=== PATIENT | male | born 1965 | race Caucasian/White ===

== ENCOUNTER 2024-07-07 14:12 | Emergency (ER) | payer MEDICARE, OTHER, SELFPAY ==
[2024-07-07 14:34] VITALS: BP 149/84
[2024-07-07 17:05] VITALS: BMI 21.9
--- NOTE | 2024-07-07 17:47 | ED.GENMED ---
History of Present Illness
General
Chief Complaint: Skin Surface Trauma
Time Seen by Provider: 07/07/24 16:23
History of Present Illness
History of Present Illness:
59-year-old male presents the emergency department for evaluation of a left hand laceration sustained with a chainsaw. He denies any paresthesias to the distal left thumb however cannot extend the thumb, last tetanus is within the past 1 to 2 years
Review of Systems
Review of Systems
Allergies reviewed?: Yes
All Other Systems: ROS reviewed and negative except as documented in HPI and ROS
Phy Exam
Physical Exam
Physical Exam:
GEN: Well appearing, NAD, WDWN
HEENT: Oral mucosa moist, no scleral icterus
Cardiac: Regular rate
Lung: No respiratory distress, no tachypnea
MSK: No gross deformity or injuries
Skin: Good color, no pallor or jaundice, no rashes. 3 cm ragged laceration to the base of the dorsal left thumb, there is a visible extensor tendon laceration at the base of the wound, no foreign bodies, no osseous tissue disruption
Neuro: AO x3, moves all extremities freely
Psych: Calm, cooperative
Course
Orders/Labs/Results
Orders:
Orders
07/07/24 16:19
Hand, Left 3 View [CR Hand - Left Min 3 Views] Urgent
Comment:
Reason For Exam: trauma
07/07/24 17:47
Cephalexin Monohydrate [Keflex] 500 mg PO NOW STA
Vital Signs
Initial and Last Documented VS:
Initial Vital Signs
Pulse Resp BP Pulse Ox
70 16 149/84 99
07/07/24 14:34 07/07/24 14:34 07/07/24 14:34 07/07/24 14:34
Last Documented Vital Signs
Pulse Resp BP Pulse Ox
70 16 149/84 99
07/07/24 14:34 07/07/24 14:34 07/07/24 14:34 07/07/24 17:06
Procedures
Laceration Closure
Left Hand:
Status of Wound: clean
Size of Wound in cm: 3
Description of Wound Edges: ragged
Preparation: cleaned with saline
Anesthesia: 1% Lidocaine with epi
Revision/Debridement: routine- no revision
Wound exploration: explored to base- no FB and with tx- contaminated
Type of Closure: single layer closure
Skin Closure Material: 5-0 nylon
Number of sutures: 4
MDM/Problems Addressed
MDM/Problems Addressed:
I was unable to locate the proximal segment of the extensor tendon and thus the wound was closed loosely with nylon sutures and the patient was placed in a thumb spica splint, x-ray showed no evidence for fracture. Communicated with hand surgery
for close outpatient follow-up, will provide prophylactic antibiotics
*Critical Care Note
Total Time (30-74mins, 75-104mins- exclusive of procedures): Not Applicable
ED Attending Note
-
Portions of this chart may have been created with voice recognition software.� Occasional wrong word or��sound alike� substitutions may have occurred due to the inherent limitations of voice recognition software.
Discharge Plan
Departure
Patient Disposition: Home (Routine Discharge)
Date of Disposition: 07/07/24
Time of Disposition: 17:50
Patient with high blood pressure during this ER visit?: No
Discharge Problem:
Laceration of extensor muscle, fascia and tendon of left thumb at wrist and hand level, initial encounter
Prescriptions:
New
cephalexin 500 mg capsule
500 mg PO TID 7 Days Qty: 21 0RF
Referrals:
NONE,* [Family Provider] -
Marcos Carvajal MD [Active] - (Call Tuesday at 8am for 'Emergency Department follow up for tendon laceration')
Activity Restrictions/Additional Instructions:
Please keep the splint in place until Orthopedic follow up
Call Orthopedics first thing in the AM
Interventions
Interventions:
*Risk Screen - Suicide Last Done: 07/07/24 18:08
*General Assessment Last Done: 07/07/24 17:06
*Neglect/Abuse Screening Last Done: 07/07/24 17:06
ED- Fall Risk Assessment Last Done: 07/07/24 17:06
*ED COVID-19 Vaccine History Last Done: 07/07/24 14:34
*Nursing Disposition Last Done: 07/07/24 18:08
ED-Skin Assessment Last Done: 07/07/24 17:06
Discharge Date and Time
Discharge Date/Time: 07/07/24 18:10
Print Language: MALAY
[2024-07-07] MEDS: KEFLEX 500 MG PO (18:02)
== END 2024-07-07 18:10 | disposition home or self-care (01) ==
LOC: EMR 14:12
PROVIDERS: EMERGENCY PHYSICIAN Emergency Medicine
DX: S66.222A Laceration of extensor muscle, fascia and tendon of left thumb at wrist and hand level, initial encounter (principal); W29.3XXA Contact with powered garden and outdoor hand tools and machinery, initial encounter
CPT/HCPCS: 99285; 13132; 73130

== ENCOUNTER → 2024-07-11 15:04 | Outpatient (REF) | payer MEDICARE, OTHER, SELFPAY ==
[2024-07-11 15:28] LABS: % Basophils 1.3 % (0-2); % Eosinophils 3.2 % (0-6); % Immature Granulocytes 0.6 % (0-0.5); % Lymphocytes 22.9 % (20.5-51.1); % Monocytes 8.8 % (1.7-9.3); % Neutrophils 63.2 % (42.2-75.2); Absolute Basophils 0.1 10^3/uL (0-0.2); Absolute Eosinophils 0.2 10^3/uL (0-0.7); Absolute Lymphocytes 1.4 10^3/uL (1.2-3.4); Absolute Monocytes 0.6 10^3/uL (0.1-0.6); Absolute Neutrophils 3.9 10^3/uL (1.4-6.5); Hematocrit 39.4 % (39.0-52.0); Hemoglobin 13.1 g/dL (13.0-18.0); Mean Corp Hgb Conc. 33.2 g/dL (33.0-37.0); Mean Corpuscular Hgb 29.2 pg (27.0-31.0); Mean Corpuscular Volume 87.8 fL (80.0-94.0); Mean Platelet Volume 10.2 fL (7.4-10.4); Nucleated Red Blood Cells % 0 % (-); Platelet Count 225 10^3/uL (130-400); Red Blood Cell Count 4.49 10^6/uL (4.70-6.10); Red Cell Dist. Width 12.7 % (11.5-14.5); White Blood Cell Count 6.2 10^3/uL (4.8-10.8)
[2024-07-11 15:53] LABS: Albumin 4.3 g/dl (3.5-5.0); Blood Urea Nitrogen 22 mg/dl (9-20); Carbon Dioxide 31 mmol/L (22-30); Chloride 101 mmol/L (98-107); Glucose 81 mg/dl (70-99); Phosphorus 2.9 mg/dl (2.5-4.5); Potassium 4.2 mmol/L (3.5-5.1); Sodium 143 mmol/L (135-145); eGFR 52.64
== END ==
LOC: REG 15:04
PROVIDERS: ATTENDING PHYSICIAN Student in an Organized Health Care Education/Training Program
DX: Z01.818 Encounter for other preprocedural examination (principal)
CPT/HCPCS: 36415; 80069; 85025

== ENCOUNTER → 2024-08-31 10:55 | Outpatient (REF) | payer MEDICARE, OTHER, SELFPAY | LOC: PAVMRI 10:55 | PROVIDERS: ATTENDING PHYSICIAN Orthopaedic Surgery Hand Surgery; FAMILY PHYSICIAN Student in an Organized Health Care Education/Training Program | DX: S61.019A Laceration without foreign body of unspecified thumb without damage to nail, initial encounter (principal) | CPT/HCPCS: 73218 ==

== ENCOUNTER 2024-09-13 16:59 | Emergency (ER) | payer MEDICARE, OTHER, SELFPAY ==
[2024-09-13 17:05] VITALS: BP 174/109
[2024-09-13 17:46] LABS: % Basophils 0.5 % (0-2); % Eosinophils 0.8 % (0-6); % Immature Granulocytes 0.1 % (0-0.5); % Lymphocytes 14.2 % (20.5-51.1); % Monocytes 9.4 % (1.7-9.3); Absolute Eosinophils 0.1 10^3/uL (0-0.7); Absolute Monocytes 0.7 10^3/uL (0.1-0.6); Absolute Neutrophils 5.5 10^3/uL (1.4-6.5); Hematocrit 40.2 % (39.0-52.0); Hemoglobin 13.5 g/dL (13.0-18.0); Mean Corp Hgb Conc. 33.6 g/dL (33.0-37.0); Mean Corpuscular Hgb 29.9 pg (27.0-31.0); Mean Corpuscular Volume 89.1 fL (80.0-94.0); Mean Platelet Volume 10.3 fL (7.4-10.4); Nucleated Red Blood Cells % 0 % (-); Platelet Count 199 10^3/uL (130-400); Red Blood Cell Count 4.51 10^6/uL (4.70-6.10); Red Cell Dist. Width 12.6 % (11.5-14.5); White Blood Cell Count 7.3 10^3/uL (4.8-10.8)
[2024-09-13 17:54] LABS: Lactic Acid 1.6 mmol/L (0.7-2.0)
[2024-09-13 17:58] LABS: ALT (SGPT) 23 U/L (0-50); AST (SGOT) 35 U/L (17-59); Albumin 4.5 g/dl (3.5-5.0); Alkaline Phosphatase 71 U/L (38-126); Blood Urea Nitrogen 26 mg/dl (9-20); Carbon Dioxide 29 mmol/L (22-30); Chloride 100 mmol/L (98-107); Glucose 120 mg/dl (70-99); Sodium 139 mmol/L (135-145); Total Bilirubin 0.5 mg/dl (0.2-1.3); Total Protein 7.1 g/dl (6.3-8.2); eGFR 57.18
[2024-09-13 19:03] VITALS: BP 154/78
[2024-09-13 19:04] VITALS: BMI 22.2
--- NOTE | 2024-09-13 19:35 | ED.GENMED ---
History of Present Illness
General
Chief Complaint: Circulation Problem
Source: patient
Exam Limitations: none
Time Seen by Provider: 09/13/24 19:23
Nursing documentation reviewed up to this point in time: agreed with
History of Present Illness
History of Present Illness:
59-year-old male presents emergency department complaint of swelling in his left hand. He had recent surgery, tenolysis. This was tendon repair due to chainsaw accident.
Past History
Past History
ED Past Medical History: GERD and HTN
ED Past Surgical History: Other (tenolysis right thumb)
Social History
Tobacco: Smoker
Drug: Marijuana
Personal: Partner
Living: with family
Review of Systems
Review of Systems
Allergies reviewed?: Yes
All Other Systems: Not applicable
Constitutional: Reports no symptoms
EENT: Reports no symptoms
Respiratory: Reports no symptoms
Cardiac: Reports no symptoms
ABD/GI: Reports no symptoms
: Reports no symptoms
Musculoskeletal: Reports muscle pain
Skin: Reports other (black and blue hand)
Neurological: Reports numbness
Endocrine: Reports no symptoms
Hematologic/Lymphatic: Reports no symptoms
Psychiatric: Reports no symptoms
Phy Exam
Physical Exam
Physical Exam:
Physical Exam
General: no apparent distress, not acutely ill
Neck: supple.
Heart: equal radial pulses.
HEENT: Pupils equal round reactive to light, EOMI
Lungs: no acute respiratory distress. clear bilaterally
Abdomen: normal bowel sounds. not tender. no CVAT
Neuro: alert and oriented. no focal neurological deficits
Skin: no rash, left hand bruising with small blister from hematoma. Capillary refill less than 2 seconds in all fingers. Normothermic skin.
Psychiatric: well kept. interactive and cooperative
Extremities: no edema. no calf tenderness. negative homans. good distal pulses
Course
Orders/Labs/Results
Orders:
Orders
09/13/24 17:09
EKG [Electrocardiogram (*1)] Urgent
Reason for Study: Tachycardia
09/13/24 17:10
EKG- Treatment ONCE
09/13/24 17:34
Complete Blood Count/With Diff Urgent
Comprehensive Metabolic Panel Urgent
Lactic Acid Urgent
Abnormal Lab Results
09/13/24
17:34
RBC 4.51 L 10^6/uL
(4.70-6.10)
Absolute Lymphs (auto) 1.0 L 10^3/uL
(1.2-3.4)
Absolute Monos (auto) 0.7 H 10^3/uL
(0.1-0.6)
Lymphocytes % 14.2 L %
(20.5-51.1)
Monocytes % 9.4 H %
(1.7-9.3)
BUN 26 H mg/dl
(9-20)
Creatinine 1.4 H mg/dL
(0.7-1.3)
Glucose 120 H mg/dl
(70-99)
09/13/24 17:34
09/13/24 17:34
Vital Signs
Initial and Last Documented VS:
Initial Vital Signs
Temp Pulse Resp BP Pulse Ox
98.4 F 121 18 174/109 98
09/13/24 17:05 09/13/24 17:05 09/13/24 17:05 09/13/24 17:05 09/13/24 17:05
Last Documented Vital Signs
Temp Pulse Resp BP Pulse Ox
98.4 F 121 18 131/72 96
09/13/24 17:05 09/13/24 17:05 09/13/24 17:05 09/13/24 20:00 09/13/24 20:01
MDM/Problems Addressed
Differential Diagnosis Includes:
Soft tissue infection, hematoma
MDM/Problems Addressed:
59-year-old male with postoperative swelling of left hand and thumb. No concerns for circulation. Does not appear to be infected. Discussed with Dr. Corado, recommends discharge with Bactrim. Doubt this is any infection. Stable for discharge.
*Pulse Oximetry
Patient hypoxic: no
*EKG
Interpreted by ED Provider?: Yes
EKG Intrepretation Date: 09/13/24
EKG Intrepretation Time: 17:18
Interpretation: normal
Comparison EKG: no comparison EKG present
Heart Rate: 90
Rate: normal
Rhythm: sinus
[place]: normal axis
Interval: normal interval
QRS Pattern: normal QRS
Ischemia: no ischemia
*Critical Care Note
Total Time (30-74mins, 75-104mins- exclusive of procedures): Not Applicable
Data Reviewed
Review of Other/Old Records Reveals: Labs (Prior white blood cell count 6.2, prior creatinine 1.5)
Patient Management
Discussion with other providers: Agriculture Technician (Orthopedics, Dr. Corado)
Escalation/DeEscalation of care consider admission/obs:
Admission considered, but not indicated
ED Attending Note
-
Portions of this chart may have been created with voice recognition software.� Occasional wrong word or��sound alike� substitutions may have occurred due to the inherent limitations of voice recognition software.
Discharge Plan
Departure
Patient Disposition: Home (Routine Discharge)
Date of Disposition: 09/13/24
Time of Disposition: 19:51
Patient with high blood pressure during this ER visit?: Yes
Condition: Good
Discharge Problem:
Postoperative wound hematoma
Prescriptions:
New
sulfamethoxazole-trimethoprim [Bactrim DS] 800-160 mg tablet
1 tab PO BID 7 Days Qty: 14 0RF
No Action
cephalexin 500 mg capsule
500 mg PO TID 7 Days Qty: 21 0RF
Referrals:
Kuldeep Corado MD [Active] - Call in 1-3 days for appt
Sommer Bruton MD [Family Provider] -
Interventions
Interventions:
*Risk Screen - Suicide Last Done: 09/13/24 17:05
*General Assessment Last Done: 09/13/24 17:05
*Neglect/Abuse Screening Last Done: 09/13/24 17:05
ED- Fall Risk Assessment Last Done: 09/13/24 19:07
*ED COVID-19 Vaccine History Last Done: 09/13/24 17:05
*Nursing Disposition Last Done: 09/13/24 20:18
ED-Peripheral Vascular Assessment Last Done: 09/13/24 19:17
Discharge Date and Time
Discharge Date/Time: 09/13/24 20:20
Print Language: LITHUANIAN
[2024-09-13 20:00] VITALS: BP 131/72
== END 2024-09-13 20:20 | disposition home or self-care (01) ==
LOC: EMR 16:59
PROVIDERS: Emergency Medicine; EMERGENCY PHYSICIAN Emergency Medicine; FAMILY PHYSICIAN Student in an Organized Health Care Education/Training Program
DX: L76.32 Postprocedural hematoma of skin and subcutaneous tissue following other procedure (principal); Y83.8 Other surgical procedures as the cause of abnormal reaction of the patient, or of later complication, without mention of misadventure at the time of the procedure; I10 Essential (primary) hypertension; K21.9 Gastro-esophageal reflux disease without esophagitis; F17.200 Nicotine dependence, unspecified, uncomplicated
CPT/HCPCS: 99284; 80053; 83605; 85025; 93005